=== PATIENT | male | born 1950 | race Caucasian/White ===

== ENCOUNTER 2017-04-27 11:51 | Emergency (ER) | payer OTHER ==
[~2017-04-27] VITALS: Ht 165.1 cm; Wt 89.7 kg
[2017-04-27 14:17] VITALS: BP 139/85
== END 2017-04-27 14:18 | disposition home or self-care (01) ==
LOC: EME 11:51
DX: S01.111A Laceration without foreign body of right eyelid and periocular area, initial encounter (principal); W01.0XXA Fall on same level from slipping, tripping and stumbling without subsequent striking against object, initial encounter; Y92.480 Sidewalk as the place of occurrence of the external cause; Y99.0 Civilian activity done for income or pay; Z23 Encounter for immunization
CPT/HCPCS: 70450; 99281; 99284